=== PATIENT | female | born 1960 | race African-American/Black ===

== ENCOUNTER 2020-02-25 23:45 | Inpatient (IN) | payer MEDICARE ==
[~2020-02-25] VITALS: Ht 167.6 cm; Wt 179.1 kg
[2020-02-26] VITALS (7 sets, daily range): BP systolic 111–139; BP diastolic 45–81
[2020-02-26] MEDS ORDERED: MORPHINE SULFATE 4 MG/ML SYR/VIAL IV ONE (00:45)
[2020-02-26] MEDS ORDERED: ONDANSETRON HCL 4 MG/2 ML VIAL IV ONE (00:45)
[2020-02-26 00:59] LABS: Basophils # (auto) 0.1 10 ^3/uL (0-0.2); Basophils % (auto) 1.2 % (0.0-2.0); Hemoglobin 12.3 g/dL (12.2-16.2); Lymphocytes # (auto) 1.8 10 ^3/uL (0.4-5.4); Lymphocytes % (auto) 19.5 % (10.0-50.0); Mean Corpuscular Volume 81.7 fL (80.0-100.0)
[2020-02-26 01:01] LABS: Eosinophils # (auto) 0.3 10 ^3/uL (0-0.8); Eosinophils % (auto) 2.8 % (0.0-7.0); Hematocrit 37.7 % (36.0-46.0); Mean Corpuscular Hemoglobin 26.6 pg (28.0-32.0); Mean Corpuscular Hgb Conc. 32.6 g/dL (32.0-36.0); Monocytes # (auto) 0.5 10 ^3/uL (0-1.3); Monocytes % (auto) 5.7 % (0.0-12.0); Neutrophils # (auto) 6.5 10 ^3/uL (1.6-8.6); Neutrophils % (auto) 70.8 % (37.0-80.0); Nucleated Red Blood Cells % 0.1 %; Platelet Count (auto) 246 10^3/uL (140-450); Red Blood Cells 4.61 10^6/uL (4.0-5.20); Red Cell Distribution Width 18.4 % (11.8-14.3); White Blood Cell 9.2 10^3/uL (4.4-10.8)
[2020-02-26 01:13] LABS: INR 1.07 (0.9-1.15); Partial Thromboplastin Time 27.6 sec (23.64-32.05)
[2020-02-26 01:16] LABS: Alanine Aminotransferase 16 U/L (13-56); Albumin 2.7 g/dL (3.4-5.0); Anion Gap 7 (5-15); Aspartate Aminotransferase 14 U/L (15-37); BUN/Creatinine Ratio 19.6; Blood Urea Nitrogen 19 mg/dL (7-18); Calcium 8.4 mg/dL (8.5-10.1); Carbon Dioxide 26 mmol/L (21-32); Chloride 103 mmol/L (98-107); GFR African American 76 mL/min; GFR Non-African American 63 mL/min; Glucose 144 mg/dL (74-106); Sodium 136 mmol/L (136-145)
[2020-02-26 01:18] LABS: Potassium 2.8 mmol/L (3.5-5.1)
[2020-02-26 01:21] LABS: Alkaline Phosphatase 129 U/L (45-117); Bilirubin, Total 0.3 mg/dL (0.2-1.0); Total Protein 8.6 g/dL (6.4-8.2)
[2020-02-26] MEDS ORDERED: GABAPENTIN 300 MG CAP PO ONE (01:30)
[2020-02-26] MEDS ORDERED: POTASSIUM CHL 20 Meq TABLET PO ONE (01:30)
[2020-02-26] MEDS ORDERED: DEXTROSE (50%) 50ML SYRG IV PRN (04:00)
[2020-02-26] MEDS ORDERED: TEMAZEPAM 15 MG CAP PO PRN (04:00)
[2020-02-26] MEDS ORDERED: NITROGLYCERIN 0.4 MG SL TAB SL PRN (04:00)
[2020-02-26] MEDS ORDERED: MORPHINE SULF INJ 2 MG/ML SYRINGE 1ML IV PRN (04:00)
[2020-02-26] MEDS ORDERED: ONDANSETRON HCL 4 MG/2 ML VIAL IV PRN (04:00)
[2020-02-26 04:46] LABS: Cholesterol 147 mg/dL (< 200); HDL Cholesterol 78 mg/dL (40-59); LDL Cholesterol 66 mg/dL (< 100); Triglycerides 56 mg/dL (< 150)
--- NOTE | 2020-02-26 05:15 | NUR ---
Patient arrived to the unit via gurney with TELE box #72
[2020-02-26] MEDS: ACETAMINOPHEN 325 MG TAB PO PRN ×2 (05:52→16:56)
[2020-02-26] MEDS: GABAPENTIN 300 MG CAP PO SCH ×3 (05:54→21:23)
[2020-02-26] MEDS: ACCU-CHEK COMFORT CURVE STRIP VI SCH ×4 (05:54→21:24)
[2020-02-26] MEDS ORDERED: LOSA-39 PO (06:03)
[2020-02-26] MEDS ORDERED: GABA300C11 PO (06:03)
[2020-02-26] MEDS ORDERED: HYDR25TA4 PO (06:03)
[2020-02-26] MEDS ORDERED: LEVO175T31 PO (06:03)
[2020-02-26] MEDS ORDERED: IBUP800T24 PO (06:03)
[2020-02-26] MEDS ORDERED: CHOL20007 OR (06:03)
--- NOTE | 2020-02-26 06:17 | NUR ---
Assessment performed, wound pictures taken of both legs, open to air. Patient stated she has a nurse that comes three times a week to change the dressings. The wrap that was on both legs were wet, and had a foul smell. patient is able to walk independently. At the time she denies chest pain, or shortness of breath.
[2020-02-26] MEDS: InsuLIN REG 1unit/0.01ml Soln (100units/ml) SC SCH ×4 (06:36→21:23)
[2020-02-26] MEDS ORDERED: LEVOTHYROXINE SODIUM 50 MCG TAB PO SCH (07:00)
[2020-02-26] MEDS ORDERED: IBUPROFEN 800 MG TAB PO ONE (07:45)
[2020-02-26] MEDS: FAMOTIDINE 20 MG TAB PO SCH ×2 (10:21→21:23)
[2020-02-26] MEDS: ASPirin 81 mg TAB PO SCH (10:21)
--- NOTE | 2020-02-26 10:58 | NUR ---
WOUND CARE NOTE: Wound care in to see patient per wound care request regarding "bilateral lower extremity" skin integrity issue that are noted present on admission. Bedside nurse took photograph of patient's wounds upon admission for reference. Patient is 59 years old female admitted for Chest Pain. Patient with history of DM and htn. Patient is resting in bed in Rm. 297A. Patient is awake, alert and oriented. Patient is in no stated pain at this time however reports, that her BLE are sensitive to touch. Patient is ambulatory and self turning and repositioning. Her Eliazar score is 19. Skin/wound assessment done with the assistance of patient's nurse, PAULINA Pickering. Noted patient's bilateral lower legs from dorsal to posterior legs around has open full thickness ulceration with no measurable depth.Lt lower leg wound longest area measuring 15cm and Rt lower leg wound longest area measuring 10cm. Wounds are open from dorsal to posterior muniz. Wounds are red with maceration. Hyperpigmented skin noted to desean wound, moderate serous drainage noted with mild odor noted. Patient reported that she has had the BLE wounds since "November". She added that she has home health nurse that changed her BLE wound dressing every other day. She added that she's using Xeroform dressing to her BLE wounds per MD. Cleansed patient's BLE wounds with wound cleanser, patted dry with gauze, covered with Opti lock dressing and secured with elastic bandage. Patient tolerated well, no other wounds noted. Patient's wound care education provided, verbalized understanding. Bed in low position, call presley on hand with all safety precautions in placed. RECOMMENDATION: Nursing to continue with EOD/PRN dressing change to BLE wounds per MD order, Dietary consult for wounds , redistribute pressure points with pillows,elevate affected extremity on pillows, continue monitoring by wound care while patient is hospitalized. Addendum: 02/26/20 at 1433 by Kelsie Seymour RN Amended: Links added.
--- NOTE | 2020-02-26 10:59 | NUR ---
Wound care nurse Kelsie RN at bedside to perform wound care.
--- NOTE | 2020-02-26 12:23 | NUR ---
Dr. Worrell at bedside to discuss plan of care
[2020-02-26] MEDS ORDERED: ACETAMINOPHEN 325 MG TAB PO PRN (12:45)
[2020-02-26] MEDS ORDERED: POTASSIUM EFFERVESENT TAB 25 MEQ PO ONE (14:15)
[2020-02-26] MEDS ORDERED: ENOXAPARIN SOD 40 MG/0.4 ML SYRINGE SC SCH (14:44)
[2020-02-26] MEDS ORDERED: OPTISON 3ml Vial for INJ IV ONE (15:23)
[2020-02-26] MEDS ORDERED: ASPI-498 PO (15:46)
[2020-02-26] MEDS: ENOXAPARIN SOD 40 MG/0.4 ML SYRINGE SC SCH ×2 (16:55→21:24)
[2020-02-26 17:30] LABS: Albumin 2.7 g/dL (3.4-5.0); BUN/Creatinine Ratio 19.8; Calcium 8.4 mg/dL (8.5-10.1); Potassium 3.5 mmol/L (3.5-5.1)
[2020-02-26 17:32] LABS: Bilirubin, Total 0.3 mg/dL (0.2-1.0); Total Protein 8.2 g/dL (6.4-8.2)
--- NOTE | 2020-02-26 18:23 | NUR ---
PATIENT COMPLAINING OF PAIN TO BILATERAL LOWER EXTREMITY WOUNDS. PAGED WASHING MACHINE LOADER AND PULLER HOSPITALIST TO REQUEST FOR PAIN MEDICATION OTHER THAN THE TYLENOL SHE WAS ALREADY GIVEN. NAOMI TONEY NP CALLED BACK AND GAVE ORDER, WILL DOCUMENT AND CARRY OUT.
[2020-02-26] MEDS: HYDROcodone-ACET 5/325MG TAB PO PRN (18:30)
[2020-02-26] MEDS ORDERED: LEVOTHYROXINE SODIUM 50 MCG TAB PO ONE (19:00)
--- NOTE | 2020-02-26 19:34 | NUR ---
Opening Shift Note Assumed care of patient, awake and alert x 4. No S/S of distress/SOB. Bed is in lowest position and locked. Call light within reach. Board updated. Tele box number matches monitor and leads are in correct placement. Instructed on POC and to call for assist PRN, will continue to monitor for changes Q1hr and PRN.
--- NOTE | 2020-02-26 21:02 | NUR ---
IV insertion IV access obtained, via clean technique by inserting a 20 gauge catheter into a vein in the right AC after 1 attempt. IV secured properly. No trauma to site. Patient tolerated well.
[2020-02-26] MEDS: ATORVASTATIN 20 MG TAB PO SCH (21:23)
[2020-02-27] MEDS: HYDROcodone-ACET 5/325MG TAB PO PRN ×4 (04:41→22:27)
[2020-02-27 05:15] VITALS: BP 139/96
[2020-02-27 05:46] LABS: Basophils # (auto) 0.1 10 ^3/uL (0-0.2); Eosinophils # (auto) 0.2 10 ^3/uL (0-0.8); Eosinophils % (auto) 2.4 % (0.0-7.0); Hematocrit 37.4 % (36.0-46.0); Hemoglobin 12.3 g/dL (12.2-16.2); Lymphocytes # (auto) 1.4 10 ^3/uL (0.4-5.4); Lymphocytes % (auto) 16.4 % (10.0-50.0); Mean Corpuscular Hemoglobin 27.1 pg (28.0-32.0); Mean Corpuscular Hgb Conc. 32.8 g/dL (32.0-36.0); Mean Corpuscular Volume 82.5 fL (80.0-100.0); Monocytes # (auto) 0.4 10 ^3/uL (0-1.3); Monocytes % (auto) 4.7 % (0.0-12.0); Neutrophils # (auto) 6.6 10 ^3/uL (1.6-8.6); Neutrophils % (auto) 75.5 % (37.0-80.0); Nucleated Red Blood Cells % 0.1 %; Platelet Count (auto) 255 10^3/uL (140-450); Red Blood Cells 4.53 10^6/uL (4.0-5.20); Red Cell Distribution Width 18.8 % (11.8-14.3); White Blood Cell 8.8 10^3/uL (4.4-10.8)
[2020-02-27] MEDS: InsuLIN REG 1unit/0.01ml Soln (100units/ml) SC SCH ×4 (05:54→22:34)
[2020-02-27] MEDS: GABAPENTIN 300 MG CAP PO SCH ×3 (06:04→22:25)
[2020-02-27] MEDS: LEVOTHYROXINE SODIUM 50 MCG TAB PO SCH (06:05)
[2020-02-27] MEDS: ACCU-CHEK COMFORT CURVE STRIP VI SCH ×4 (06:05→22:25)
[2020-02-27 06:11] LABS: BUN/Creatinine Ratio 19.4; Calcium 8.4 mg/dL (8.5-10.1); Potassium 3.5 mmol/L (3.5-5.1)
--- NOTE | 2020-02-27 08:12 | NUR ---
Respiratory note: Pt already off CPAP, stated she took it off earlier this morning. HR 45, RR 16, SPO2 93% on room air. Pt is awake and alert, resting comfortably in bed, no s/s of respiratory distress.
[2020-02-27] MEDS ORDERED: ADENOSINE 154 MG in GIVE UN-DILUTED 0 ML IV ONE (08:30)
[2020-02-27 09:03] VITALS: BP 125/65
--- NOTE | 2020-02-27 09:45 | NUR ---
NM - OK TO GIVE MEDS Called [facility] to ask what time the stress test would be and about giving BP medications. They asked if this was "the 400 lb woman". They did not say when the test will be done, but said it was ok to give the BP medications this am.
[2020-02-27] MEDS: ASPirin 81 mg TAB PO SCH (09:52)
[2020-02-27] MEDS: FAMOTIDINE 20 MG TAB PO SCH ×2 (09:52→22:26)
[2020-02-27] MEDS: HCTZ 25 MG TAB PO SCH (09:53)
[2020-02-27] MEDS: ENOXAPARIN SOD 40 MG/0.4 ML SYRINGE SC SCH ×2 (09:53→22:28)
[2020-02-27] MEDS: LOSARTAN POTASSIUM 50 MG TAB PO SCH (09:53)
[2020-02-27 13:00] VITALS: BP 120/64
[2020-02-27 17:06] VITALS: BP 126/70
--- NOTE | 2020-02-27 17:56 | NUR ---
Diet/NPO Pt was supposed to have a stress test done today, but it was not done. She has been NPO all day and is diabetic. Last BS was 70. This nurse tried calling the Stress Lab several times but there was no answered. Called Dr. Alonzo (who is harm reduction worker) and received order for diet for tonight and then make the patient NPO after midnight for stress test tomorrow.
--- NOTE | 2020-02-27 19:34 | NUR ---
MD Almeida paged to notify.
--- NOTE | 2020-02-27 19:34 | NUR ---
Patient had short period of sinus bradycardia with bigeminal PVCs during shift change. Patient asymptomatic on assessment. EKG performed: sinus rhythm with multiple ventricular premature complexes. BP: 142/53, HR: 38, O2 saturation: 100% on RA, Temp: 97.9, RR: 18. Placed patient on 2 l/min NC and went to see MD Alonzo. MD Alonzo examined EKG and assessed it as sinus rhythm with 2:1 block with frequent PVCs. Orders received: 1) Metoprolol 25 mg PO Once, 2) Metoprol 12.5 mg PO BID. Orders repeated, verified, and placed.
[2020-02-27] MEDS ORDERED: METOPROLOL TARTRATE 25 MG TAB PO ONE (19:45)
--- NOTE | 2020-02-27 19:58 | NUR ---
Spoke to MD Almeida and notified him of current EKG and sinus bradycardia with bigeminy. Notified MD of current vital signs. Notified MD of MD Alonzo's order of Metoprolol 25 mg once/ Metoprolol 12.5 mg BID. Orders from MD Almeida: 1) Cancel Metoprol orders, 2) Magnesium oxide 400 mg PO BID with first dose now, 3) STAT magnesium, 4) STAT Potassium. Orders repeated, verified, and placed.
[2020-02-27] MEDS: MAGNESIUM OXIDE 400 MG TAB PO SCH ×2 (20:28→22:00)
[2020-02-27 21:59] VITALS: BP 115/99
[2020-02-27 22:26] LABS: Magnesium 2.3 mg/dL (1.6-2.6); Potassium 3.5 mmol/L (3.5-5.1)
[2020-02-27] MEDS: ATORVASTATIN 20 MG TAB PO SCH (22:26)
--- NOTE | 2020-02-27 22:39 | NUR ---
Patient refused regular insulin per sliding scale for blood glucose level of 150 mg/dl. Patient just ate a sandwich and is concerned her blood sugar will drop during the night when she is NPO. Will continue to assess.
--- NOTE | 2020-02-28 00:19 | NUR ---
[place] hospitalist because patient's pain level is 10/10 in her bilateral lower extremities r/t venous stasis ulcers to both legs. I gave both Etlan and Gabapentin and pain has not been relieved.
--- NOTE | 2020-02-28 00:41 | NUR ---
Spoke to DYLAN Trujillo regarding pain. Order received: Morphine 1 mg IV once. Order repeated, verified, and placed.
[2020-02-28] MEDS ORDERED: MORPHINE SULF INJ 2 MG/ML SYRINGE 1ML IV ONE (00:45)
--- NOTE | 2020-02-28 01:06 | NUR ---
Patient went into sinus bradycardia with bigeminy PVCs once more at rate of approximately 36 beats per minute Patient asymptomatic on assessment. Patient taken off oxygen for CPAP. BP: 130/91, RR: 18, Temp: 98.6, oxygen saturation 96% on RA. Took patient off CPAP and placed nasal canula at 2 l/min. Patient had returned to baseline rhythm of sinus rhythm with some PVCs by the time EKG was performed. Will notify DYLAN Trujillo.
--- NOTE | 2020-02-28 01:26 | NUR ---
RN REQUEST TO HAVE PT OFF OF CPAP DUE TO DESATURATION WITH LOWERED HR. PT ASSESSED AT BEDSIDE POX 96% ON 2L NC HR 69. PT STATES SHE FEELS FINE ON O2 CANNULA. CONT POX AT BEDSIDE.
--- NOTE | 2020-02-28 01:33 | NUR ---
Spoke to DYLAN Trujillo and showed him print out of bradycardia with bigeminal PVCs. DYLAN trujillo notified that similar event occured at approximately 1899 and that MD Alonzo and MD Almeida. DYLAN Trujillo made aware of current magnesium and potassium levels. Made aware of current vital signs. Per DYLAN Trujillo, continue to monitor. Addendum: 02/28/20 at 0223 by GABY ELLISON RN Correction: 'MD Alonzo and MD Almeida were made aware of 0 incident.
[2020-02-28 05:00] VITALS: BP 116/50
[2020-02-28] MEDS: InsuLIN REG 1unit/0.01ml Soln (100units/ml) SC SCH ×4 (06:30→22:00)
[2020-02-28] MEDS: LEVOTHYROXINE SODIUM 50 MCG TAB PO SCH (06:38)
[2020-02-28] MEDS: GABAPENTIN 300 MG CAP PO SCH ×3 (06:38→21:24)
[2020-02-28] MEDS: ACCU-CHEK COMFORT CURVE STRIP VI SCH ×4 (06:38→21:24)
--- NOTE | 2020-02-28 08:14 | NUR ---
Called about Stress test Stress test was not done yesterday. This nurse called to make sure she is on the schedule today. Was asked if this was the "400 lb patient". They said they were unable to do it yesterday because of her weight and because of patient lying on her side. They were unable to see properly. They said they would see if Dr. lAmeida is in the maintenance shop laborer and ask about doing a dobutamine stress test for the patient. Waiting to hear back.
--- NOTE | 2020-02-28 08:35 | NUR ---
PT. ASSESSED, NO RESP. DISTRESS OR SOB NOTED AT THIS TIME. PT. IS SLEEPING, 0N 4LPM NC, SP02 94%,HR=65,RR=18. PT. OFF HER CPAP THAT SHE WORE FOR A LITTLE WHILE LAST NIGHT.
[2020-02-28 09:07] VITALS: BP 104/61
[2020-02-28] MEDS: ASPirin 81 mg TAB PO SCH (09:27)
[2020-02-28] MEDS: MAGNESIUM OXIDE 400 MG TAB PO SCH ×2 (09:27→21:24)
[2020-02-28] MEDS: FAMOTIDINE 20 MG TAB PO SCH ×2 (09:28→21:22)
[2020-02-28] MEDS: ENOXAPARIN SOD 40 MG/0.4 ML SYRINGE SC SCH ×2 (09:28→21:23)
--- NOTE | 2020-02-28 09:30 | NUR ---
Held AM BP meds Patient's BP was 104/61 when taken by COLD WORKING SUPERVISOR. This nurse rechecked during med pass and it is 101/71. Held BP meds at this time. Possible stress test today. Will recheck BP again and continue to monitor patient.
[2020-02-28] MEDS ORDERED: METOPROLOL TARTRATE 25 MG TAB PO SCH (10:00)
[2020-02-28] MEDS: LOSARTAN POTASSIUM 50 MG TAB PO SCH (10:00)
[2020-02-28] MEDS: HCTZ 25 MG TAB PO SCH (10:00)
--- NOTE | 2020-02-28 11:40 | NUR ---
No stress test Contacted [facility] again and they stated that the patient's weight exceeded the limit of the table needed to do the test. They did not say this yesterday and did not notify the doctor of this as he came in to see the patient and said we were just waiting for the stress test to be done. This nurse asked if they were going to notify Dr. Almeida and they said someone in the stress lab would. This nurse paged Dr. Almeida to inform him the stress test cannot be done and see if there are any new orders, also to get a diet order as the patient is NPO and is diabetic. Waiting for return call.
--- NOTE | 2020-02-28 12:05 | NUR ---
Paged Dr. Almeida Called office and left a message for MD to call regarding pt not getting stress test and need for diet order.
[2020-02-28] MEDS: HYDROcodone-ACET 5/325MG TAB PO PRN ×2 (12:31→20:19)
[2020-02-28 12:32] VITALS: BP 108/67
--- NOTE | 2020-02-28 12:34 | NUR ---
OJ given, low BS Patient's blood sugar was 61. Despite NPO order, pt is not likely to receive stress test and this nurse has not yet heard back from Dr. Almeida regarding plans for pt. This nurse gave one box of OJ to prevent further decrease in blood sugar. Pt is alert and oriented at this time. No sx of low blood sugar noted.
[2020-02-28 13:00] VITALS: BP 103/60
--- NOTE | 2020-02-28 15:38 | NUR ---
Nutrition Assessment Notes Please refer to link for full assessment notes. Est Energy needs: kcals (11-14 kcal/kgBW) Est Protein needs: 107-134 gms/day (1.2-1.5 gm/kgAdjBW) Will continue to monitor and reassess prn. Addendum: 02/28/20 at [address] Amended: Links added.
[2020-02-28 16:50] VITALS: BP 102/66
--- NOTE | 2020-02-28 16:53 | NUR ---
Dressing change BLE Dressings were changed to BLE. Cleansed with normal saline per patient's request stating that the wound cleanser was very painful and burned. Removed old dressing, cleansed area and dried thoroughly. Applied new dressing as ordered and wrapped with THAO wrap.
--- NOTE | 2020-02-28 19:42 | NUR ---
Respiratory note: WENT TO ASK PATIENT WHAT TIME SHE WOULD LIKE TO GO ON CPAP AND PATIENT STATED SHE DID NOT WANT TO WEAR IT TONIGHT. PATIENT WAS ASLEEP , NO DISTRESS NOTED. HR 61, RR 18, SPO2 100% ON 2L NC.
--- NOTE | 2020-02-28 20:19 | NUR ---
Opening Shift Note Assumed care of patient, awake and alert. No S/S of distress/SOB c/o leg pain. Instructed on POC and to call for assist PRN, will continue to monitor for changes Q1hr and PRN.Medicated with one tab. [place] 5/325mg.p.o for pain level of 6/10 in the legs, as needed, and at 2118, no pain noted.
[2020-02-28] MEDS: ATORVASTATIN 20 MG TAB PO SCH (21:24)
[2020-02-28 22:00] VITALS: BP 114/47
[2020-02-29] MEDS: HYDROcodone-ACET 5/325MG TAB PO PRN ×3 (03:16→23:39)
--- NOTE | 2020-02-29 03:16 | NUR ---
Medicated with [place] one tab.5/325mg.p.o. for leg pain 04/15, and at 0416 patient seen resting no complained of pain.
[2020-02-29 05:00] VITALS: BP 110/48
[2020-02-29] MEDS: GABAPENTIN 300 MG CAP PO SCH ×3 (05:20→21:28)
[2020-02-29] MEDS: InsuLIN REG 1unit/0.01ml Soln (100units/ml) SC SCH ×4 (06:30→21:31)
[2020-02-29] MEDS: ACCU-CHEK COMFORT CURVE STRIP VI SCH ×4 (06:31→21:31)
[2020-02-29] MEDS: LEVOTHYROXINE SODIUM 50 MCG TAB PO SCH (06:32)
--- NOTE | 2020-02-29 07:26 | NUR ---
Report given to Ap Chauhan, patient is resting no distress.
--- NOTE | 2020-02-29 07:40 | NUR ---
Opening Shift Note Assumed care of patient, awake and alert. No S/S of distress/SOB or pain. Instructed on POC and to call for assist PRN, will continue to monitor for changes Q1hr and PRN.
[2020-02-29 09:37] VITALS: BP 118/76
[2020-02-29] MEDS: FAMOTIDINE 20 MG TAB PO SCH ×2 (09:51→21:27)
[2020-02-29] MEDS: ASPirin 81 mg TAB PO SCH (09:51)
[2020-02-29] MEDS: ENOXAPARIN SOD 40 MG/0.4 ML SYRINGE SC SCH ×2 (09:51→21:32)
[2020-02-29] MEDS: MAGNESIUM OXIDE 400 MG TAB PO SCH ×2 (09:51→21:28)
[2020-02-29] MEDS: LOSARTAN POTASSIUM 50 MG TAB PO SCH (10:00)
[2020-02-29] MEDS: HCTZ 25 MG TAB PO SCH (10:00)
[2020-02-29 10:11] VITALS: BP 114/73
[2020-02-29 13:00] VITALS: BP 119/64
--- NOTE | 2020-02-29 17:00 | NUR ---
Niko Verified with patient that se can have Glucerna, she states that she sometimes gets constipated with dairy products.
[2020-02-29 17:10] VITALS: BP 128/63
[2020-02-29] MEDS: CLINDAMYCIN HCL 150 MG CAP PO SCH ×2 (17:24→21:29)
[2020-02-29] MEDS: Glucerna Carbsteady SHAKE Vanilla 8oz PO SCH (18:26)
[2020-02-29] MEDS: ATORVASTATIN 20 MG TAB PO SCH (21:29)
--- NOTE | 2020-02-29 21:50 | NUR ---
Respiratory note: PATIENT STATED SHE DID NOT WANT TO GO ON CPAP AGAIN TONIGHT. NO DISTRESS NOTED. HR 39, RR 18, SPO2 100% ON 2L N/C.
[2020-02-29 22:37] VITALS: BP 109/65
--- NOTE | 2020-02-29 23:39 | NUR ---
Medicated with one tab. [place] 5/325 for bilateral leg pain 6/10,as needed before her sponge bath in the commode, and at 0039, patient is resting no pain noted.
[2020-03-01] MEDS ORDERED: MORPHINE SULF INJ 2 MG/ML SYRINGE 1ML IV PRN (00:15)
--- NOTE | 2020-03-01 00:16 | NUR ---
Talked to Ledy Breaux for pain med. for pain level of 7-10, with order of Morphine 2mg.i.v.p. every 4hour as needed.
[2020-03-01 05:10] VITALS: BP 155/83
[2020-03-01] MEDS: GABAPENTIN 300 MG CAP PO SCH ×3 (05:32→21:20)
[2020-03-01] MEDS: CLINDAMYCIN HCL 150 MG CAP PO SCH ×4 (05:32→21:20)
[2020-03-01] MEDS: LEVOTHYROXINE SODIUM 50 MCG TAB PO SCH (06:15)
[2020-03-01] MEDS: InsuLIN REG 1unit/0.01ml Soln (100units/ml) SC SCH ×4 (06:16→22:00)
[2020-03-01] MEDS: ACCU-CHEK COMFORT CURVE STRIP VI SCH ×4 (06:16→22:00)
--- NOTE | 2020-03-01 06:50 | NUR ---
Respiratory note: HR 75, RR 16, SPO2 100% ON RA, BS CLEAR AND DIMINISHED. PRN MED NEB TX NOT INDICATED AT THIS TIME. NO SIGNS OR SYMPTOMS OF RESPIRATORY DISTRESS NOTED AT THIS TIME.PT INFORMED TO HIT CALL BUTTON IF FEELING SOB OR WHEEZING
[2020-03-01 07:06] LABS: Basophils # (auto) 0 10 ^3/uL (0-0.2); Basophils % (auto) 0.6 % (0.0-2.0); Eosinophils # (auto) 0.2 10 ^3/uL (0-0.8); Hemoglobin 10.9 g/dL (12.2-16.2); Lymphocytes # (auto) 1.2 10 ^3/uL (0.4-5.4); Lymphocytes % (auto) 16.5 % (10.0-50.0); Mean Corpuscular Hemoglobin 27.1 pg (28.0-32.0); Mean Corpuscular Hgb Conc. 32.9 g/dL (32.0-36.0); Mean Corpuscular Volume 82.2 fL (80.0-100.0); Monocytes # (auto) 0.5 10 ^3/uL (0-1.3); Monocytes % (auto) 7.4 % (0.0-12.0); Neutrophils # (auto) 5.1 10 ^3/uL (1.6-8.6); Neutrophils % (auto) 72.5 % (37.0-80.0); Platelet Count (auto) 209 10^3/uL (140-450); Red Blood Cells 4.01 10^6/uL (4.0-5.20); Red Cell Distribution Width 18.4 % (11.8-14.3); White Blood Cell 7.1 10^3/uL (4.4-10.8)
[2020-03-01 07:17] LABS: BUN/Creatinine Ratio 18.7; Calcium 8.1 mg/dL (8.5-10.1); Potassium 3.8 mmol/L (3.5-5.1)
--- NOTE | 2020-03-01 07:30 | NUR ---
Report given to Kaci Traore, patient is resting no distress.
[2020-03-01] MEDS: Glucerna Carbsteady SHAKE Vanilla 8oz PO SCH ×3 (08:00→18:12)
[2020-03-01 09:14] VITALS: BP 117/69
[2020-03-01] MEDS: HCTZ 25 MG TAB PO SCH (09:34)
[2020-03-01] MEDS: ASPirin 81 mg TAB PO SCH (09:34)
[2020-03-01] MEDS: FAMOTIDINE 20 MG TAB PO SCH ×2 (09:34→21:20)
[2020-03-01] MEDS: LOSARTAN POTASSIUM 50 MG TAB PO SCH (09:35)
[2020-03-01] MEDS: MAGNESIUM OXIDE 400 MG TAB PO SCH ×2 (09:35→21:21)
[2020-03-01] MEDS: ENOXAPARIN SOD 40 MG/0.4 ML SYRINGE SC SCH ×2 (09:35→21:20)
--- NOTE | 2020-03-01 10:00 | NUR ---
WOUND CARE AND CULTURE SENT REMOVED THAO WRAP AND OLD DRESSING TO BLE. CLEANSED BILATERAL LOWER EXTREMITIES WITH WOUND CLEANSER, DRIED WITH STERILE GAUZE, COVERED WITH XEROFORM AND OPTILOCK DRESSING.SECURED WITH TAPE,WRAPPED WITH THAO BANDAGE. PATIENT TOLERATED WELL, DENIED PAIN. WOUND SWABBED AND CULTURE SENT TO THE LAB.
--- NOTE | 2020-03-01 11:00 | NUR ---
PATIENT ON BEDPAN.
--- NOTE | 2020-03-01 11:21 | NUR ---
OFF BEDPAN; URINATED 500CC CLEAR YELLOW URINE. LINENS CHANGED PATIENT TOLERATED WELL.
[2020-03-01 12:56] VITALS: BP 108/61
--- NOTE | 2020-03-01 15:32 | NUR ---
PT AT BEDSIDE TO ASSIST PATIENT WITH DAILY EXERCISES.
--- NOTE | 2020-03-01 16:00 | NUR ---
UP TO CHAIR WITH PT PATIENT WAS ABLE TO TRANSFER FROM THE BED TO THE CHAIR AND BACK WITH MODERATE 2 PERSON ASSISTANCE, TOLERATED WELL. PATIENT VERBALIZED IT WAS EASIER AND LESS PAINFUL THAN YESTERDAY.
[2020-03-01 17:00] VITALS: BP 114/59
[2020-03-01] MEDS: ATORVASTATIN 20 MG TAB PO SCH (21:20)
[2020-03-01 22:55] VITALS: BP 121/64
[2020-03-02] MEDS: CLINDAMYCIN HCL 150 MG CAP PO SCH ×4 (05:36→21:16)
[2020-03-02] MEDS: GABAPENTIN 300 MG CAP PO SCH ×3 (05:36→21:18)
[2020-03-02 05:39] VITALS: BP 108/51
[2020-03-02 05:42] LABS: Basophils # (auto) 0.1 10 ^3/uL (0-0.2); Basophils % (auto) 0.8 % (0.0-2.0); Eosinophils # (auto) 0.2 10 ^3/uL (0-0.8); Eosinophils % (auto) 2.8 % (0.0-7.0); Hematocrit 34.9 % (36.0-46.0); Hemoglobin 11.3 g/dL (12.2-16.2); Lymphocytes # (auto) 1.4 10 ^3/uL (0.4-5.4); Lymphocytes % (auto) 18.3 % (10.0-50.0); Mean Corpuscular Hemoglobin 26.7 pg (28.0-32.0); Mean Corpuscular Hgb Conc. 32.3 g/dL (32.0-36.0); Mean Corpuscular Volume 82.7 fL (80.0-100.0); Monocytes # (auto) 0.5 10 ^3/uL (0-1.3); Monocytes % (auto) 6.6 % (0.0-12.0); Neutrophils # (auto) 5.6 10 ^3/uL (1.6-8.6); Neutrophils % (auto) 71.5 % (37.0-80.0); Nucleated Red Blood Cells % 0.1 %; Platelet Count (auto) 225 10^3/uL (140-450); Red Blood Cells 4.22 10^6/uL (4.0-5.20); Red Cell Distribution Width 18.4 % (11.8-14.3); White Blood Cell 7.8 10^3/uL (4.4-10.8)
[2020-03-02 05:58] LABS: Calcium 8.6 mg/dL (8.5-10.1); Potassium 3.5 mmol/L (3.5-5.1)
[2020-03-02 06:00] LABS: BUN/Creatinine Ratio 18.4
[2020-03-02] MEDS: InsuLIN REG 1unit/0.01ml Soln (100units/ml) SC SCH ×4 (06:24→21:22)
[2020-03-02] MEDS: LEVOTHYROXINE SODIUM 50 MCG TAB PO SCH (06:24)
[2020-03-02] MEDS: ACCU-CHEK COMFORT CURVE STRIP VI SCH ×4 (06:25→21:22)
--- NOTE | 2020-03-02 07:00 | NUR ---
OPENING SHIFT NOTE REPORT RECEIVED FROM NIGHT RN MIMA. PATIENT ASLEEP AROUSABLE TO NAME AND GENTLE TOUCH. DENIED PAIN. PATIENT STATED SHE HAD HEART BURN, NON RADIATING AFTER HER TECHNICAL SALES MANAGER MEDICATIONS; DENIED CHEST PAIN OR PRESSURE VITALS 114/58 HR75 [id number]% T98.8 R14 LUNGS CLEAR; RESPIRATIONS RELAXED AND EVEN. WILL CONTINUE TO MONITOR.
--- NOTE | 2020-03-02 07:13 | NUR ---
Report given to Kaci Lopez, patient has no complaints the whole night.
[2020-03-02] MEDS: Glucerna Carbsteady SHAKE Vanilla 8oz PO SCH ×3 (08:00→18:22)
[2020-03-02 09:08] VITALS: BP 112/54
--- NOTE | 2020-03-02 09:10 | NUR ---
RE-ASSESS TELE#72 NSR 75
[2020-03-02] MEDS: HCTZ 25 MG TAB PO SCH (10:00)
[2020-03-02] MEDS: LOSARTAN POTASSIUM 50 MG TAB PO SCH (10:00)
[2020-03-02] MEDS: MAGNESIUM OXIDE 400 MG TAB PO SCH ×2 (10:33→21:17)
[2020-03-02] MEDS: ASPirin 81 mg TAB PO SCH (10:33)
[2020-03-02] MEDS: ENOXAPARIN SOD 40 MG/0.4 ML SYRINGE SC SCH ×2 (10:33→21:19)
[2020-03-02] MEDS: FAMOTIDINE 20 MG TAB PO SCH ×2 (10:33→21:18)
[2020-03-02 13:00] VITALS: BP 123/60
[2020-03-02 17:00] VITALS: BP 106/57
--- NOTE | 2020-03-02 18:00 | NUR ---
PATIENT HAS WALKER BEDSIDE AND CAN AMBULATE WITH STANDBY ASSISTANCE 100 FEET, TOLERATED WELL NO DISTRESS, NO O2, SATURATION 98%.
--- NOTE | 2020-03-02 19:05 | NUR ---
ENDORSED CARE TO NIGHT RN
--- NOTE | 2020-03-02 19:30 | NUR ---
Received report from the Day Shift PAULINA Lopez. Pt. in bed resting.
--- NOTE | 2020-03-02 19:36 | NUR ---
SR @ 75 with Bigeminal PVC's @ the monitor 72. Pt. denies chest pain and denies any pain when assessed.
--- NOTE | 2020-03-02 21:16 | NUR ---
Meds. as scheduled given/administered @ this time. Pt. provided explanation or health teaching about the use or mechanism of actions of the meds. as ordered by the Doctor. Pt. verbalized understanding.
[2020-03-02] MEDS: ATORVASTATIN 20 MG TAB PO SCH (21:17)
[2020-03-02 21:21] VITALS: BP 141/54
--- NOTE | 2020-03-02 21:22 | NUR ---
Accucheck taken with result of BS = 88 , No coverage for Regular Human Insulin needed. Pt. given snacks/nourishment @ bedtime or hs.
--- NOTE | 2020-03-02 23:30 | NUR ---
Pt. requested to ambulate for a few minutes along the room and kumar. Pt. assisted by the BALANCE BRIDGE INSPECTOR from bed to get to the walker. Pt. able to ambulate about 15-30 feet from bed along the room then to the kumar near the room and then back to bed with use of the walker. BALANCE BRIDGE INSPECTOR assisted the pt. back to the bed safely. Pt. feels satisfied with a few minutes of walk using the walker.
--- NOTE | 2020-03-03 02:00 | NUR ---
Pt. sleeping undisturbed. Keep safe and imaging account manager bed. Call-light @ the bedside.
--- NOTE | 2020-03-03 04:00 | NUR ---
Pt. provided assistance and bedside nsg. care. Pt. returned to sleep.
[2020-03-03 05:09] VITALS: BP 131/58
[2020-03-03] MEDS: CLINDAMYCIN HCL 150 MG CAP PO SCH ×2 (06:09→12:27)
[2020-03-03] MEDS: GABAPENTIN 300 MG CAP PO SCH ×2 (06:10→12:28)
[2020-03-03] MEDS: LEVOTHYROXINE SODIUM 50 MCG TAB PO SCH (06:11)
[2020-03-03] MEDS: ACCU-CHEK COMFORT CURVE STRIP VI SCH ×2 (06:14→11:54)
[2020-03-03] MEDS: InsuLIN REG 1unit/0.01ml Soln (100units/ml) SC SCH ×2 (06:14→11:30)
--- NOTE | 2020-03-03 06:14 | NUR ---
Accucheck taken with result of BS = 97 , No coverage for Regular Human Insulin needed. Pt. aware of her blood sugar result.
--- NOTE | 2020-03-03 07:30 | NUR ---
Opening shift note Assumed care of patient. Patient resting with eyes closed, respirations even and non-labored with no s/s of distress. POC written on board, will discuss further upon waking. Bed lowered/locked with 2 side rails up. Call light within reach. Will continue to monitor.
[2020-03-03] MEDS: Glucerna Carbsteady SHAKE Vanilla 8oz PO SCH ×2 (08:00→12:30)
[2020-03-03 09:00] VITALS: BP 143/57
--- NOTE | 2020-03-03 09:15 | NUR ---
Patient ambulating with PT
[2020-03-03] MEDS: ENOXAPARIN SOD 40 MG/0.4 ML SYRINGE SC SCH (10:35)
[2020-03-03] MEDS: LOSARTAN POTASSIUM 50 MG TAB PO SCH (10:37)
[2020-03-03] MEDS: FAMOTIDINE 20 MG TAB PO SCH (10:38)
[2020-03-03] MEDS: ASPirin 81 mg TAB PO SCH (10:38)
[2020-03-03] MEDS: HCTZ 25 MG TAB PO SCH (10:38)
[2020-03-03] MEDS: MAGNESIUM OXIDE 400 MG TAB PO SCH (10:39)
[2020-03-03 12:59] VITALS: BP 131/63
--- NOTE | 2020-03-03 14:30 | NUR ---
DRESSING CHANGE TO BLE REMOVED OLD DRESSINGS; CLEANSED WITH WOUND CLEANSER, PAT DRY WITH STERILE GAUZE, APPLIED XEROFOAM GAUZE, COVERED WITH OPTILOCK DRESSING SECURED WITH THAO WRAP. PATIENT TOLERATED WELL.
[2020-03-03 17:03] VITALS: BP 143/57
--- NOTE | 2020-03-03 17:29 | NUR ---
Discharge instructions given as ordered. Encourage to follow up with PMD as instructed. All questions and concerns addressed. Patient verbalized understanding. Medication reconciliation form completed and copy given to patient. IV removed with catheter intact, pressure dressing applied. Telemetry unit returned to ICU. Patient taken to vehicle via wheelchair with all personal belongings, accompanied by staff and family member waiting in lobby. No distress noted at time of departure.
== END 2020-03-03 18:20 | disposition home or self-care (01) | DRG 291 ==
LOC: EDBD 23:45 → ER 23:52 → TELE 23:53 → TELE-WESTW 02-26 05:05
PROVIDERS: ADMIT Nurse Practitioner; ATTEND Internal Medicine Nephrology
PROC: 5A09357 Assistance with Respiratory Ventilation, Less than 24 Consecutive Hours, Continuous Positive Airway Pressure (ICD-10-PCS; principal; 2020-02-26)
DX: I13.0 Hypertensive heart and chronic kidney disease with heart failure and stage 1 through stage 4 chronic kidney disease, or unspecified chronic kidney disease (principal); J96.01 Acute respiratory failure with hypoxia; I50.43 Acute on chronic combined systolic (congestive) and diastolic (congestive) heart failure; E44.0 Moderate protein-calorie malnutrition; L03.116 Cellulitis of left lower limb; L03.115 Cellulitis of right lower limb; Z68.44 Body mass index [BMI] 60.0-69.9, adult; I25.110 Atherosclerotic heart disease of native coronary artery with unstable angina pectoris; E87.6 Hypokalemia; I95.9 Hypotension, unspecified; E66.01 Morbid (severe) obesity due to excess calories; I89.0 Lymphedema, not elsewhere classified; N18.9 Chronic kidney disease, unspecified; E11.22 Type 2 diabetes mellitus with diabetic chronic kidney disease; E03.9 Hypothyroidism, unspecified; E78.5 Hyperlipidemia, unspecified; Z82.49 Family history of ischemic heart disease and other diseases of the circulatory system
CPT/HCPCS: 36415; 70450; 71045; 80048; 80053; 80061; 82962; 83036; 83735; 83880; 84132; 84443; 84484; 85025; 85610; 85730; 87040; 87077; 87186; 87205; 93306; 93970; 94660; 96374; 96375; 97116; 97163; 97530; G0378; J0153; J2405; Q9956